=== PATIENT | male | born 1995 | race Two or more races ===

== ENCOUNTER 2017-04-29 05:22 | Emergency (ER) | payer SELFPAY ==
[~2017-04-29] VITALS: Ht 180.3 cm; Wt 72.6 kg
[2017-04-29 05:40] VITALS: BP 133/80
[2017-04-29] MEDS ORDERED: Capsaicin 0.075% Cream TOPIC ONE (05:45)
--- NOTE | 2017-04-29 05:48 | Emergency Room Report ---
History of Present Illness General Chief Complaint: Vomiting Source: Patient Present Illness HPI 22-year-old male, chronic marijuana user, presenting with nausea vomiting and epigastric pain. Occurred for one day. Burning epigastric pain. More than 5 episodes of nonbilious nonbloody emesis. Stool is normal. No fever no chills. No history of abdominal surgeries. Denies any alcohol use today Allergies: Coded Allergies: DIPHENHYDRAMINE (Verified Allergy, Unknown, 04/29/17) Patient History Past Medical History: see triage record Past Surgical History: none Pertinent Family History: none Reviewed Nursing Documentation: PMH: Agreed, PSxH: Agreed Nursing Documentation-PMH Past Medical History: No Stated History Review of Systems All Other Systems: negative except mentioned in HPI Physical Exam Vital Signs Date Time Temp Pulse Resp B/P (MAP) Pulse Ox O2 Delivery O2 Flow Rate FiO2 04/29/17 05:29 97.3 74 12 133/80 97 Room Air Sp02 EP Interpretation: reviewed, normal General Appearance: moderate distress Head: normocephalic, atraumatic Eyes: bilateral eye normal inspection, bilateral eye PERRL, bilateral eye EOMI ENT: normal ENT inspection, normal pharynx, normal voice, moist mucus membranes Neck: normal inspection, full range of motion, supple Respiratory: normal inspection, lungs clear, normal breath sounds, no respiratory distress, no retraction, no wheezing, speaking full sentences, chest symmetrical Cardiovascular #1: normal inspection, regular rate, rhythm, no edema, normal capillary refill Cardiovascular #2: 2+ radial (R), 2+ radial (L) Gastrointestinal: other - Mild epigastric tenderness, nontender all of the quadrants Musculoskeletal: normal inspection, back normal, normal range of motion, non- tender Neurologic: normal inspection, alert, oriented x3, responsive, motor strength/ tone normal, sensory intact, normal gait, speech normal Psychiatric: normal inspection, judgement/insight normal, memory normal Skin: normal inspection, normal color, no rash, warm/dry, well hydrated, normal turgor Medical Decision Making ER Course 22-year-old male with nausea vomiting and epigastric pain Differential Diagnosis: Gastritis, gastroenteritis, cholecystitis, cyclic vomiting secondary to marijuana use At this time abdomen is soft nontender all quadrants with the exception of epigastric area, not likely to have acute intra-abdominal surgical pathology, will hold CT for now. Plan: Basic labs, ua, Utox zofran, capsacein cream, IVF ER course: Disposition: Signed out patient to Dr Kyle 22 yo m n/v epigastric pain -pending labs -pending symptom control w pepcid, zofran, fluids, capsacein cream Please note that this Emergency Department Report was dictated using [employer] supervisor technology software, occasionally this can lead to erroneous entry secondary to interpretation by the dictation equipment Last Vital Signs Date Time Temp Pulse Resp B/P (MAP) Pulse Ox O2 Delivery O2 Flow Rate FiO2 04/29/17 05:29 97.3 74 12 133/80 97 Room Air Referrals: NOT CHOSEN IPA/,REFERRING (PCP) Farheen Bowman M.D. Apr 29, 2017 05:48
[2017-04-29 05:56] LABS: BASOPHILS % (AUTO) 0.7 % (0.0-2.0); HEMATOCRIT 44.8 % (42.0-52.0); HEMOGLOBIN 15.1 G/DL (14.2-18.0); LYMPHOCYTES % (AUTO) 15.7 % (20.0-45.0); MEAN CORPUSCULAR VOLUME 98 FL (80-99); MONOCYTES % (AUTO) 5.8 % (1.0-10.0); NEUTROPHILS % (AUTO) 77.8 % (45.0-75.0); PLATELET COUNT 262 K/UL (150-450); RED BLOOD COUNT 4.57 M/UL (4.70-6.10); RED CELL DISTRIBUTION WIDTH 11.2 % (11.6-14.8); WHITE BLOOD COUNT 10.8 K/UL (4.8-10.8)
[2017-04-29] MEDS ORDERED: Haloperidol 5mg/ml Inj IM ONE (06:00)
[2017-04-29 06:14] LABS: ALANINE AMINOTRANSFERASE 21 U/L (12-78); ALBUMIN 4.6 G/DL (3.4-5.0); ALBUMIN/GLOBULIN RATIO 1.1 (1.0-2.7); ALKALINE PHOSPHATASE 52 U/L (46-116); ANION GAP 10 mmol/L (5-15); ASPARTATE AMINO TRANSFERASE 17 U/L (15-37); BILIRUBIN,TOTAL 0.4 MG/DL (0.2-1.0); BLOOD UREA NITROGEN 14 mg/dL (7-18); CALCIUM 9.9 MG/DL (8.5-10.1); CARBON DIOXIDE 27 MMOL/L (21-32); CHLORIDE 101 MMOL/L (98-107); CREATININE 1.1 MG/DL (0.55-1.30); POTASSIUM 3.6 MMOL/L (3.5-5.1); SODIUM 138 MMOL/L (136-145)
[2017-04-29 07:39] LABS: APPEARANCE,URINE CLEAR; BILIRUBIN, URINE NEGATIVE (NEGATIVE); GLUCOSE, URINE (UA) NEGATIVE (NEGATIVE); KETONES,URINE 2+ (NEGATIVE); LEUKOCYTE ESTERASE ,URINE 1+ (NEGATIVE); NITRITE,URINE NEGATIVE (NEGATIVE); PH,URINE 9 (4.5-8.0); PROTEIN,URINE 2+ (NEGATIVE); UROBILINOGEN,URINE 1 MG/DL (0.0-1.0)
[2017-04-29 07:45] LABS: COLOR,URINE YELLOW
[2017-04-29] MEDS ORDERED: ZOFRAN4 MG ORAL (08:26)
[2017-04-29] MEDS ORDERED: BENTYL10 MG ORAL (08:26)
[2017-04-29 08:30] VITALS: BP 128/72
[2017-04-29 08:35] VITALS: BP 128/72
== END 2017-04-29 08:38 | disposition home or self-care (01) ==
LOC: EMR 05:41
DX: R10.13 Epigastric pain (principal); R11.2 Nausea with vomiting, unspecified
CPT/HCPCS: 36415; 80053; 80307; 81003; 83690; 85025; 96372; 96374; 99284; G0480; J1630; J2405; 80329